=== PATIENT | male | born 2000 ===

== ENCOUNTER 2025-03-21 16:19 | Outpatient (AMB) | payer OTHER, SELFPAY ==
--- NOTE | 2025-03-21 16:22 | MHC.OFFWIV ---
Intake Vital Signs 03/21/25 16:24 Height 6 ft Weight 230 lb BMI 31.2 BP 126/74 Blood Pressure Location Lt brachial Position Sitting Pulse 64 Pulse Source Pulse Oximeter Temp 98.0 F Temp Source Oral Pulse Oximetry (%) 98 Oxygen Delivery Method Room Air Intake Visit Reasons: GEM [employer]VER Left ankle pain Intake Note: pt presents with worsening LT ankle pain for a few days - denies injury Allergies No Known Allergies Allergy (Verified 03/21/25 16:25) Do you need a note to return to daycare/school/sports/work: No HPI HPI Comments History of Present Illness Details 24 y/o male presents to walk-in clinic with c/o left foot pain x2 days. Pain localized to dorsal aspect of left foot; describes pain as sharp. Worse with movement, standing, or flexing foot muscles. Denies any known recent injury or trauma. Works in construction and wears steel-toe boots daily. Denies numbness, tingling, or radiation of pain. Has not taken any OTC medications for symptom relief. No prior similar episodes reported. [facility] Medical History (Updated 03/21/25 @ 16:46 by Eli Miranda NP) Arthralgia of left foot Review of Systems Const All systems reviewed & are unremarkable except as noted in HPI and below Physical Exam Vital Signs: Last Vital Signs Temp 98.0 F 03/21/25 16:24 Pulse 64 03/21/25 16:24 BP 126/74 03/21/25 16:24 Pulse Ox 98 03/21/25 16:24 Oxygen Delivery Method Room Air 03/21/25 16:24 BMI result Body Mass Index 31.2 Const General: no acute distress Nutritional Appearance: well nourished Orientation/consciousness: patient oriented x3 Skin General skin exam: no rashes or lesions noted Neuro General: patient oriented x3, gait normal and moves all extremities Extrem Left lower extremity: foot Details: normal capillary refill, tenderness Location: of the dorsal foot Location: laterally, toes with normal ROM and no edema; no unusual warmth, no abrasions, no ecchymosis and no crepitus Psych Speech and movement: Normal speech and movement present Assessment & Plan Assessment & Plan (1) Arthralgia of left foot: Code(s): M25.572 - Pain in left ankle and joints of left foot Plan: Left foot strain vs extensor tendinitis ? most likely given pain with movement and location on dorsal foot, occupational footwear, and absence of trauma. Less likely: Early stress injury/stress fracture (no swelling or point bony tenderness reported but would consider if symptoms persist or worsen). Will consider Xray of foot then. Recommend RICE: rest, ice (15?20 min, 2?3? daily), compression if tolerated, elevation. Start OTC NSAID: Ibuprofen 400?600 mg every 6?8 hours with food x48?72 hours. Recommend modifying footwear temporarily if possible; consider cushioned insole for work boots. Avoid high-impact activity and prolonged standing until improvement. Follow up sooner if numbness, swelling, redness, or severe pain develops. Coding Level of Care Code New Pt Level 4 (75883) Diagnoses Arthralgia of left foot M25.572 Time Spent (min) 20
[2025-03-21 16:24] VITALS: BP 126/74; PULSE 64; TEMP 36.7; O2SAT 98; BMI 31.2
--- OUTSIDE RECORDS SUMMARY | 2025-03-21 22:09 | XMS_ITS | Clinical Summary ---
Author Organization [facility] Address [address] [place] [address] Care Team Providers Care Secondary Social Studies Teacher Name Role Phone Unavailable Primary Care Provider Unavailabl e Surgical History Surgery Date Site/Laterality Comments ELBOW SURGERY PROCEDURE: HISTORICAL ELBOW SURGERY MULTIPLE TOOTH EXTRACTIONS PROCEDURE: HISTORICAL DENTAL EXTRACTION Medical History Medical History Date Comments Blood in stool 07/25/2017 DX:Blood in stoo l Diarrhea 09/22/2017 DX:Diarrhea Esophageal reflux 09/22/2017 DX:Esophageal reflux Gastritis 08/15/2017 DX:Gastritis Social History Tobacco Use Types Packs/Day Years Used Date Smoking Tobacco: Never Assessed Sex and Gender Information Value Date Recorded Sex Assigned at Not on file Legal Sex Male 3:31 AM EST Gender Identity Not on file Sexual Orientation Not on file Obstetrics History Plan of Treatment Health Maintenance Due Date Last Done Comments HPV Vaccines (1 - Male 3-dos e series) 2013 DTaP,Tdap,and Td Vaccines (1 - Tdap) 2017 Hepatitis B Vaccines (1 of 3 - 19+ 3-dose series) 2017 Depression Screening 04/18/2024 COVID-19 Vaccine (1 - 2024-2 6 season) 2024 Influenza Vaccine (#1) 2024 RSV Immunization Adult Patie nts (1 - 1-dose 75+ series) 2073 HIB Vaccines Aged Out No longer eligi ble based on patient's age to complete this topic Hepatitis A Vaccines Aged Out No long er eligible based on patient's age to complete this topic IPV Vaccines Aged Out No longer eligi ble based on patient's age to complete this topic MMR Vaccines Aged Out No longer eligi ble based on patient's age to complete this topic Meningococcal ACWY Vaccine Aged Out N o longer eligible based on patient's age to complete this topic Meningococcal B Vaccine Aged Out No l onger eligible based on patient's age to complete this topic Pneumococcal Vaccine: Pediat rics (0 to 5 Years) and At-Risk Patients (6 to 49 Years) Aged Out No longer eligible b ased on patient's age to complete this topic RSV Immunization Patients Un max 20 months Aged Out No longer eligible b ased on patient's age to complete this topic Varicella Vaccines Aged Out No longer eligible based on patient's age to complete this topic
== END 2025-03-21 16:50 | disposition home or self-care (01) ==
PROVIDERS: Visit Provider Nurse Practitioner Family
DX: M25.572 Pain in left ankle and joints of left foot (principal)